=== PATIENT | male | born 1980 | race Caucasian/White ===

== ENCOUNTER 2020-04-13 12:40 | Emergency (ER) | payer SELFPAY ==
--- NOTE | 2020-04-13 13:25 | ER Document Report ---
ED Medical Screen (RME) - General Chief Complaint: Skin Problem Stated Complaint: ABCESS Time Seen by Provider: 04/13/20 13:19 Mode of Arrival: Ambulatory Information source: Patient Notes: 39-year-old male presented to ED for right lower abdominal abscess. It is a very large red abscess cellulitis area. He states the pain is 2/5 and sore sometimes burning. He states it started with a hair bump about a week ago he pinched it about 3 days out and then it became much larger. He states he does not smoke but he drinks 2-3 times a week does not use any drugs. Has no past medical or surgical history. I have greeted and performed a rapid initial assessment of this patient. A comprehensive ED assessment and evaluation of the patient, analysis of test results and completion of medical decision making process will be conducted by an additional ED providers. - Related Data Allergies/Adverse Reactions: No Known Allergies Allergy (Unverified 04/13/20 13:14) Past Medical History - Social History Chew tobacco use (# tins/day): No Frequency of alcohol use: Occasional Drug Abuse: None Physical Exam - Vital signs Vitals: Temp Pulse Resp BP Pulse Ox 98.1 F 85 16 153/86 H 98 04/13/20 12:49 04/13/20 12:49 04/13/20 12:49 04/13/20 12:49 04/13/20 12:49 Course - Vital Signs Vital signs: Temp Pulse Resp BP Pulse Ox 98.1 F 85 16 153/86 H 98 04/13/20 12:49 04/13/20 12:49 04/13/20 12:49 04/13/20 12:49 04/13/20 12:49
[2020-04-13 14:12] LABS: ABSOLUTE EOSINOPHILS # (AUTO) 0.2 10^3/uL (0.0-0.6); ABSOLUTE LYMPHOCYTES (AUTO) 2.7 10^3/uL (0.5-4.7); ABSOLUTE MONOCYTES (AUTO) 0.9 10^3/uL (0.1-1.4); BASOPHILS % (AUTO) 0.4 % (0-2); EOSINOPHILS % (AUTO) 1.9 % (0-6); HEMATOCRIT 40.7 % (37.9-51.0); HEMOGLOBIN 14.2 g/dL (13.5-17.0); LYMPHOCYTES % (AUTO) 24.6 % (13-45); MEAN CORPUSCULAR HEMOGLOBIN 30.2 pg (27.0-33.4); MEAN CORPUSCULAR HGB CONC 34.8 g/dL (32.0-36.0); MEAN CORPUSCULAR VOLUME 87 fl (80-97); MONOCYTES % (AUTO) 8.6 % (3-13); PLATELET COUNT 173 10^3/uL (150-450); RED CELL DISTRIBUTION WIDTH 13.6 % (11.5-14.0); SEGMENTED NEUTROPHILS % (AUTO) 64.5 % (42-78); TOTAL CELLS COUNTED % (AUTO) 100 %; WHITE BLOOD COUNT 10.8 10^3/uL (4.0-10.5)
[2020-04-13 14:14] LABS: APPEARANCE,URINE CLEAR; BILIRUBIN,URINE NEGATIVE (NEGATIVE); COLOR,URINE YELLOW; GLUCOSE, URINE NEGATIVE (NEGATIVE); KETONES,URINE NEGATIVE (NEGATIVE); LEUKOCYTE ESTERASE,URINE NEGATIVE (NEGATIVE); NITRITE,URINE NEGATIVE (NEGATIVE); PROTEIN,URINE NEGATIVE (NEGATIVE); URINE SPECIFIC GRAVITY 1.012; UROBILINOGEN,URINE NEGATIVE mg/dL (<2.0)
[2020-04-13 14:27] LABS: ALBUMIN 4.4 g/dL (3.5-5.0); ALKALINE PHOSPHATASE 72 U/L (38-126); ANION GAP 8 (5-19); ASPARTATE AMINO TRANSFERASE 40 U/L (17-59); BILIRUBIN,DIRECT 0.2 mg/dL (0.0-0.4); BILIRUBIN,TOTAL 0.6 mg/dL (0.2-1.3); BLOOD UREA NITROGEN 15 mg/dL (7-20); CALCIUM 9.6 mg/dL (8.4-10.2); CARBON DIOXIDE 30 mmol/L (22-30); CHLORIDE 101 mmol/L (98-107); GLUCOSE 94 mg/dL (75-110); POTASSIUM 4.9 mmol/L (3.6-5.0); TOTAL PROTEIN 7.7 g/dL (6.3-8.2)
[2020-04-13] MEDS ORDERED: SULFAMETHOXAZOLE/TRIMETHOPRIM 800-160 MG TABLET PO ONE (16:29)
[2020-04-13] MEDS ORDERED: CEPHALEXIN 500 MG CAPSULE PO ONE (16:29)
--- NOTE | 2020-04-13 16:34 | ER Document Report ---
ED General - General Chief Complaint: Skin Problem Stated Complaint: ABCESS Time Seen by Provider: 04/13/20 13:19 Mode of Arrival: Ambulatory - [facility] Notes: Patient is a 39-year-old male with no significant medical history presents the emergency department for evaluation. He states 6 days ago he felt he thought was an ingrown hair on his lower abdomen. He squeezed it. Since then he has had increased redness, drainage, pain. He currently puts his pain at a 3 out of 5. This started draining over the last several days. No fevers or chills. No nausea or vomiting. He is eating and drinking normally. He has no history of MRSA or other skin abscess. - Related Data Allergies/Adverse Reactions: No Known Allergies Allergy (Unverified 04/13/20 13:14) Home Medications: None Past Medical History - General Information source: Patient - Social History Smoking Status: Never Smoker Chew tobacco use (# tins/day): No Frequency of alcohol use: Occasional Drug Abuse: None Family History: Hypertension - Medical History Medical History: Negative Review of Systems - Review of Systems Constitutional: No symptoms reported EENT: No symptoms reported Cardiovascular: No symptoms reported Respiratory: No symptoms reported Gastrointestinal: No symptoms reported Genitourinary: No symptoms reported Musculoskeletal: No symptoms reported Skin: See HPI Neurological/Psychological: No symptoms reported -: Yes All other systems reviewed and negative Physical Exam - Vital signs Vitals: Temp Pulse Resp BP Pulse Ox 98.1 F 85 16 153/86 H 98 04/13/20 12:49 04/13/20 12:49 04/13/20 12:49 04/13/20 12:49 04/13/20 12:49 - Notes Notes: Vital signs reviewed, please refer to chart. Head is normocephalic, atraumatic. Pupils equal round, reactive to light. Neck is supple without meningismus. Heart is regular rate and rhythm. Lungs are clear to auscultation bilaterally. Abdomen is soft, nontender, normoactive bowel sounds throughout. Examination of the right lower quadrant yields an indurated area approximately 4 x 7 cm, with a central wound, granulation tissue noted and a small amount of purulent drainage. He has a larger surrounding cellulitic area with poorly demarcated borders, that occupies the majority of the right lower quadrant. It does not travel around the flank. Extremities without cyanosis, clubbing. Posterior calves are nontender. Peripheral pulses are equal. Patient is awake, alert, neurological exam is nonfocal. Course - Re-evaluation Re-evalutation: 04/13/20 16:31 Patient presents to the emergency department for evaluation. He was initially seen through triage. He had blood work done. I did evaluate the patient. He has a large amount of induration, but I did not appreciate any fluctuance. This physician did perform bedside ultrasound. There was a traditional cobblestoning appearance of cellulitis, and perhaps a small amount of purulent material noted, but this was not organized, and no thick-walled abscess appropriate for drainage. I explained this to the patient. He is told to keep the wound clean with soap and water, keep it bandaged and protected from further contamination. I will start the patient on Bactrim and Keflex. He is to follow-up with primary care or return to the ED with any worsening. He voiced understanding. - Vital Signs Vital signs: Temp Pulse Resp BP Pulse Ox 98.1 F 85 16 153/86 H 98 04/13/20 12:49 04/13/20 12:49 04/13/20 12:49 04/13/20 12:49 04/13/20 12:49 - Laboratory Result Diagrams: 04/13/20 13:42 04/13/20 13:42 Laboratory results interpreted by me: 04/13/20 13:42 WBC 10.8 H Discharge - Discharge Clinical Impression: Abdominal wall cellulitis Condition: Stable Disposition: HOME, SELF-CARE Instructions: Trimethoprim-Sulfa ([facility]), Cephalexin ([facility]), Cellulitis ([facility]) Additional Instructions: Please take all the antibiotics exactly as prescribed. Keep the area clean with soap and water, keep bandaged to protect from further contamination. If you develop fevers, vomiting, the redness spreads beyond the marked area, or you develop any other new or concerning symptoms, please return immediately to the emergency department for reevaluation. Forms: Elevated Blood Pressure
[2020-04-13 17:07] VITALS: BP 148/79
== END 2020-04-13 17:00 | disposition home or self-care (01) ==
LOC: ER 12:40
DX: L03.311 Cellulitis of abdominal wall (principal)
CPT/HCPCS: 36415; 80053; 81001; 85025; 87040; 99283